=== PATIENT | male | born 1975 | race Caucasian/White ===

== ENCOUNTER 2018-12-10 19:48 | Emergency (ER) | payer OTHER ==
--- NOTE | 2018-12-10 20:29 | EDPHY ---
H & P Stated Complaint: R leg pain-migrating into back Time Seen by Provider: 12/10/18 20:11 HPI/ROS: CHIEF COMPLAINT: Right knee pain HISTORY OF PRESENT ILLNESS: 43-year-old male, generally healthy, arrives via private vehicle complaining of atraumatic right knee pain. He was playing tennis earlier this afternoon and notes no specific incident where he felt immediate pain or had any direct trauma to his knee. Proximally hour later he started to notice progressive right medial knee pain as well as soft tissue swelling including into the popliteal aspect of the knee. During episode of pain he felt lightheaded, cold and clammy as well as carpal pedal spasms. No syncope. States that these symptoms have by and large resolved now. No complaints. PRIMARY CARE PROVIDER: REVIEW OF SYSTEMS: 10 systems reviewed and negative with the exception of the elements mentioned in the history of present illness PAST MEDICAL & SURGICAL HISTORY: Patient is Immunocompetent SOCIAL HISTORY: . No IV drug use. Works as an real estate attorney PHYSICAL EXAM (Prior to examination, patient consented to physical exam, hands were washed and my usual and customary physical exam procedures followed) 1) GENERAL: Well-developed, well-nourished, alert and oriented. Appears to be in no acute distress. 2) HEAD: Normocephalic, atraumatic 3) HEENT: Pupils equal, round, reactive to light bilaterally. Sclera anicteric. 4) NECK: Full range of motion, no meningeal signs. 5) LUNGS: Clear auscultation bilaterally, no wheezes, no rhonchi, no retractions. 6) HEART: Regular rate and rhythm, no murmur, no heave, no gallop. 7) ABDOMEN: No guarding, no rebound, no focal tenderness, negative McBurney's, negative Kenyon's, negative Rovsing's, negative peritoneal sign, 8) MUSCULOSKELETAL: Right lower extremity: Prepatellar effusion is noted, tender to palpation medial and popliteal aspect of the knee with limited range of motion secondary to pain. Able to extend to approximately 70 degrees with limited flexion. Soft compartments throughout. DP PT pulses present and brisk. Normal coloration and temperature to the foot and distally to the knee. Normal coloration. No pain with axial loading of the joint. Proximally distally nontender with soft compartments. 9) BACK: No CVA tenderness, no midline vertebral tenderness, no fluctuance, no step-off, no obvious trauma, no visual or palpable abnormality. 10) SKIN: No rash, no petechiae. 11) Psychiatric: Patient is oriented X 3, there is no agitation. DIFFERENTIAL DIAGNOSIS: In no particular order including but not limited to fracture, sprain, strain, septic arthritis, crystal arthritis, DVT, arterial occlusion, - Personal History Current Tetanus Diphtheria and Acellular Pertussis (TDAP): Yes - Medical/Surgical History Hx Asthma: No Hx Chronic Respiratory Disease: No Hx Diabetes: No Hx Cardiac Disease: No Hx Renal Disease: No Hx Cirrhosis: No Hx Alcoholism: No Hx HIV/AIDS: No Hx Splenectomy or Spleen Trauma: No Other PMH: R shoulder - Social History Smoking Status: Never smoked Constitutional: Initial Vital Signs Temperature (C) 36.7 C 12/10/18 19:50 Heart Rate 74 12/10/18 19:50 Respiratory Rate 16 12/10/18 19:50 Blood Pressure 119/90 H 12/10/18 19:50 O2 Sat (%) 96 12/10/18 19:50 O2 Delivery Mode Room Air Allergies/Adverse Reactions: No Known Allergies Allergy (Unverified 12/10/18 19:50) Home Medications: Medication Instructions Recorded Ambien 12/10/18 Hydrocodone/Acetaminophen [Vicodin 1 each PO Q6 #10 tablet 12/10/18 5-300 mg Tablet] Lexapro 12/10/18 Xanax 12/10/18 Medical Decision Making - Diagnostics Imaging Results: Imaging Impressions Extremity Venous Study 12/10/18 20:17 Impression: No evidence of deep vein thrombosis in the right lower extremity. Results called and discussed with Flor PAULINO on 12/10/2018 at 21:35. Knee X-Ray 12/10/18 20:17 Impression: Negative for fracture. If symptoms persist, MRI could be considered for further evaluation. Images reviewed myself Procedures: Procedure: Arthrocentesis. Indication: Evaluation for the possibility of septic joint. Risks, benefits, alternatives of the procedure were discussed with the patient and consent obtained. The patient was prepped and draped in the usual sterile fashion over the right medial knee joint. Local anesthesia was provided with 1% lidocaine with epinephrine. The joint space was entered with a 18 gauge needle and 2 cc of bloody straw-colored fluid was obtained. There were no complications. The procedure was performed by myself. Patient tolerated procedure well. Synovial fluid sent to laboratory for evaluation Procedure: Crutches indications for crutch use discussed with patient. Patient fitted for crutches by ER staff. Observed ambulating with crutches. I think the patient has the capacity to safely use crutches. Usual and customary crutch walking precautions provided Procedure: Splint A knee immobilizer splint was applied by ER crystal growing technician. After application of the splint I returned and re-examined the patient. The splint was adequately immobilizing the joint and distal to the splint the patient's circulation and sensation were intact. Patient shows no signs of compartment syndrome. Was given orthopedic precautions. ED Course/Re-evaluation: 9:46 p.m.: Patient will be contacted regarding results of his synovial fluid analysis. He would like to know whether he can be discharged. I am agreeable with this, I will contact him this later on this evening with the results of the synovial fluid analysis. Is no evidence of DVT. Doubt arterial occlusion. We discussed acute inflammatory pathology which may be the more than likely pathology given his playing tennis as preceding his symptoms. No history of trauma. Will plan on discharging the patient with knee immobilizer, crutches, follow up with orthopedic referral and analgesia. 11:16 p.m.: I spoke with the patient at this time to update him with the initial Gram stain which [place] [id number]. I think his symptoms less than likely represents septic arthritis. He will plan on following up with Orthopedics, will call their office on Wednesday (today is Wednesday). - Data Points Laboratory Results: 12/10/18 22:08 Synovial Source Pending Synovial Color Pending Synovial Appearance Pending Synovial WBC 33269 /mm3 H /mm3 (0-150) Synovial RBC 56247 /mm3 H /mm3 (0-0) Microbiology Results: MICROBIOLOGY 12/10/18 22:08 Synovial Fluid - Aspirate Gram Stain - Final Departure - Departure Disposition: Home, Routine, Self-Care Clinical Impression: Right medial knee pain Condition: Good Instructions: Knee Pain (ED) Additional Instructions: Return to the ER immediately if you experience discoloration, have worsening pain, numbness, tingling, or any other symptoms that concern you. If you received x-rays in the emergency department today, be advised, that ligamentous , tendon, muscular, and other non-bony injury cannot be fully ruled out. Try to keep your affected extremity elevated above the level of your chest, and keep cold packs on the affected area, for the next 48 hours. Referrals: Nasim Fountain MD [Medical Doctor] - 2-3 days, call for appt. Prescriptions: Hydrocodone/Acetaminophen [Vicodin 5-300 mg Tablet] 1 each PO Q6 #10 tablet
[2018-12-10 22:10] VITALS: BP 137/89
== END 2018-12-10 22:11 | disposition home or self-care (01) ==
PROC: 0S9C3ZZ Drainage of Right Knee Joint, Percutaneous Approach (ICD-10-PCS; principal; 2018-12-10)
DX: M25.561 Pain in right knee (principal)